=== PATIENT | male | born 1990 | race Caucasian/White ===

== ENCOUNTER 2017-10-05 12:55 | Emergency (ER) | payer MEDICAID, SELFPAY ==
[2017-10-05 12:55] VITALS: BP 118/75; PULSE 89; RESP 16; TEMP 36.7; O2SAT 97; BMI 22.1
--- NOTE | 2017-10-05 13:39 | ED.DEP ---
ED Disposition - Plan for ED Patient: Chief Complaint: Abscess Instructions: ED Abscess IandD Prescriptions: Cephalexin [Keflex] 500 mg PO Q6 #40 capsule Smz/Tmp Ds [Bactrim Ds] 1 tablet PO BID #14 tablet Referrals: Care Physician,No Primary [Primary Care Provider] - Devaughn Kinney MD [STAFF PHYSICIAN] -
--- NOTE | 2017-10-05 13:43 | ED.VISSUMM ---
- ER Visit Summary Date of Service: 10/05/17 Chief Complaint: Abscess History of Present Illness: The patient is a 27 M presenting with abscess left forearm and right thigh. He states this has been ongoing for several weeks. He tried draining them at home without relief. He has had multiple abscesses in the past. He denies fever. Denies other complaints. Physical Examination: Vitals are stable. Patient is afebrile. Alert no acute distress. HEENT exam is unremarkable. Neck is supple. Lungs are clear and equal bilaterally. Heart is regular rate and rhythm. Extremities 2, 1cm indurated abscess left forearm, no fluctuance. 2cm indurated abscess right thigh Skin is warm and dry. No focal neurologic deficit. Remainder of exam is unremarkable. Emergency Department Course and Treatment: There is no fluctuance to the abscess. He is advised to use warm compresses. He was given Bactrim and Keflex. Advised return to ED for any worsening complaints. Advised to follow-up with primary care physician. Disposition: Discharge home Impression: Indurated abscess left forearm, right thigh This note was generated with [employer] dictation software. It may contain incorrect words, spelling, and punctuation that were not noted in review of the chart prior to signing ED Disposition - Plan for ED Patient: Chief Complaint: Abscess Instructions: ED Abscess IandD Prescriptions: Cephalexin [Keflex] 500 mg PO Q6 #40 capsule Smz/Tmp Ds [Bactrim Ds] 1 tablet PO BID #14 tablet Referrals: Deavughn Kinney MD [STAFF PHYSICIAN] - Care Physician,No Primary [Primary Care Provider] -
[2017-10-05] MEDS: Smz/Tmp Ds Tablet 1 TABLET PO (13:46)
[2017-10-05] MEDS: Cephalexin 250 MG Capsule 500 MG PO (13:46)
--- NOTE | 2017-10-05 13:47 | ED.DCSUM_ITS ---
- ER Visit Summary Date of Service: 10/05/17 Chief Complaint: Abscess History of Present Illness: The patient is a 27 M presenting with abscess left forearm and right thigh. He states this has been ongoing for several weeks. He tried draining them at home without relief. He has had multiple abscesses in the past. He denies fever. Denies other complaints. Physical Examination: Vitals are stable. Patient is afebrile. Alert no acute distress. HEENT exam is unremarkable. Neck is supple. Lungs are clear and equal bilaterally. Heart is regular rate and rhythm. Extremities 2, 1cm indurated abscess left forearm, no fluctuance. 2cm indurated abscess right thigh Skin is warm and dry. No focal neurologic deficit. Remainder of exam is unremarkable. Emergency Department Course and Treatment: There is no fluctuance to the abscess. He is advised to use warm compresses. He was given Bactrim and Keflex. Advised return to ED for any worsening complaints. Advised to follow- up with primary care physician. Disposition: Discharge home Impression: Indurated abscess left forearm, right thigh This note was generated with [employer] dictation software. It may contain incorrect words, spelling, and punctuation that were not noted in review of the chart prior to signing ED Disposition - Plan for ED Patient: Chief Complaint: Abscess Instructions: ED Abscess IandD Prescriptions: Cephalexin [Keflex] 500 mg PO Q6 #40 capsule Smz/Tmp Ds [Bactrim Ds] 1 tablet PO BID #14 tablet Referrals: Devaughn Kinney MD [STAFF PHYSICIAN] - Care Physician,No Primary [Primary Care Provider] -
== END 2017-10-05 13:53 | disposition home or self-care (01) ==
LOC: ED 13:33
PROVIDERS: Emergency Provider Emergency Medicine
DX: L02.414 Cutaneous abscess of left upper limb (principal); L02.415 Cutaneous abscess of right lower limb; Z87.2 Personal history of diseases of the skin and subcutaneous tissue; Z72.0 Tobacco use
CPT/HCPCS: 99283